=== PATIENT | female | born 1960 | race Caucasian/White ===

== ENCOUNTER 2018-07-23 11:30 | Inpatient (IN) | payer OTHER ==
[~2018-07-23] VITALS: Ht 157.5 cm; Wt 90.3 kg
[2018-07-23] MEDS ORDERED: COZAAR100 MG PO (13:56)
[2018-07-23] MEDS ORDERED: LEXAPRO20 MG PO (13:57)
[2018-07-23] MEDS ORDERED: CARDURA XL4 MG PO (13:57)
[2018-08-06] MEDS ORDERED: DOCUSATE SODIU100 MG PO (10:09)
[2018-08-06] MEDS ORDERED: PERCOCET 5-3251 EACH PO (10:10)
[2018-08-06] MEDS ORDERED: CLONAZEPAM1 MG PO (10:10)
[2018-08-06] MEDS ORDERED: DOLOGESIC 500-1 EACH PO (14:23)
== END 2018-08-06 15:30 | disposition home or self-care (01) | DRG 455 ==
LOC: O/R 08-05 03:45 → SURH 08-05 07:00 → SURG 08-05 11:01 → SURH 08-05 11:30 → SURG 08-06 15:30
PROVIDERS: Orthopaedic Surgery Orthopaedic Surgery of the Spine
PROC: 0RG2071 Fusion of 2 or more Cervical Vertebral Joints with Autologous Tissue Substitute, Posterior Approach, Posterior Column, Open Approach (ICD-10-PCS; 2018-08-05)
PROC: 0RT30ZZ Resection of Cervical Vertebral Disc, Open Approach (ICD-10-PCS; 2018-08-05)
PROC: 07DS3ZZ Extraction of Vertebral Bone Marrow, Percutaneous Approach (ICD-10-PCS; 2018-08-05)
PROC: 0RG20A0 Fusion of 2 or more Cervical Vertebral Joints with Interbody Fusion Device, Anterior Approach, Anterior Column, Open Approach (ICD-10-PCS; principal; 2018-08-05 07:00)
DX: M50.01 Cervical disc disorder with myelopathy, high cervical region (principal); I10 Essential (primary) hypertension